=== PATIENT | male | born 1960 | race Caucasian/White ===

== ENCOUNTER 2018-03-18 18:19 | Emergency (ER) | payer MEDICARE, OTHER ==
[~2018-03-18] VITALS: Ht 172.7 cm; Wt 74.8 kg
[~2018-03-18 18:19] MED LIST: ALBU90OI INH; ASPI81CH PO; LEVSOD50 PO; Lisinopril2.5 MG; PRED20 PO; Zithromax250 MG PO
[2018-03-18] MEDS ORDERED: ATOR10 PO (19:35)
[2018-03-18 19:37] LABS: BASOPHILS ABSOLUTE AUTO 0.03 K/mm3 (0.00-0.23); BASOPHILS PERCENT AUTO 0 % (0-2); EOSINOPHILS ABSOLUTE AUTO 0.03 K/mm3 (0.00-0.68); EOSINOPHILS PERCENT AUTO 0 % (0-6); Hematocrit 38.1 % (37.0-53.0); Hemoglobin 12.2 g/dL (13.5-17.5); IMMATURE GRAN ABSOLUTE AUTO 0.04 K/mm3 (0.00-0.10); IMMATURE GRAN PERCENT AUTO 0 % (0-1); LYMPHOCYTES ABSOLUTE AUTO 3.31 K/mm3 (0.84-5.20); LYMPHOCYTES PERCENT AUTO 28 % (21-46); MONOCYTES ABSOLUTE AUTO 0.44 K/mm3 (0.16-1.47); MONOCYTES PERCENT AUTO 4 % (4-13); Mean Corpuscular HGB 24.8 pg (26.0-34.0); Mean Corpuscular Volume 78 fL (80-100); Mean Platelet Volume 9.7 fL (9.1-12.4); NEUTROPHILS ABSOLUTE AUTO 8.08 K/mm3 (1.96-9.15); NEUTROPHILS PERCENT AUTO 68 % (41-73); Platelet Count 332 K/mm3 (150-400); RDW Coefficient Variation 15.2 % (11.7-14.2); RDW Standard Deviation 42.8 fL (35.1-46.3); Red Blood Cell Count 4.91 M/mm3 (4.30-5.90); White Blood Cell Count 11.93 K/mm3 (4.00-11.30)
[2018-03-18 20:01] LABS: Alanine Aminotransfer (ALT/SGP 12 U/L (12-78); Albumin, Blood 3.2 g/dL (3.4-5.0); Albumin/Globulin Ratio 0.7 (0.8-1.8); Alk Phos 89 U/L (50-136); Anion Gap 12 mmol/L (6-16); Aspartate Aminotrans (AST/SGOT 13 U/L (12-37); Bilirubin, Total 0.6 mg/dL (0.1-1.0); Blood Urea Nitrogen 15 mg/dL (8-24); Bun/Creatinine Ratio 14.7 (12.0-20.0); CO2, Blood 19 mmol/L (21-32); Calcium, Blood 8.8 mg/dL (8.5-10.1); Chloride, Blood 100 mmol/L (98-108); Creatinine, Blood 1.02 mg/dL (0.60-1.20); Globulin, Blood 4.5 g/dL (2.2-4.0); Glomerular Filtration Rate >60 (60-); Glucose, Blood 84 mg/dL (70-99); Potassium, Blood 3.8 mmol/L (3.5-5.5); Sodium, Blood 131 mmol/L (136-145); Total Protein, Blood 7.7 g/dL (6.4-8.2); Troponin I <0.015 ng/mL (0.000-0.040)
[2018-03-18 20:45] LABS: Influenza A Negative (NEGATIVE); Influenza B Negative (NEGATIVE)
== END 2018-03-18 21:28 | disposition home or self-care (01) ==
LOC: ER 18:19
PROVIDERS: Emergency Medicine; Physician Assistant
DX: J44.9 Chronic obstructive pulmonary disease, unspecified (principal); J44.0 Chronic obstructive pulmonary disease with (acute) lower respiratory infection; J20.9 Acute bronchitis, unspecified; R50.9 Fever, unspecified; F17.210 Nicotine dependence, cigarettes, uncomplicated; Z79.899 Other long term (current) drug therapy
CPT/HCPCS: 36415; 71046; 80053; 83880; 84484; 85025; 87804; 93005; 93010; 96361; 96374; 96375; 99285-25; J1100; J2405; J7030

== ENCOUNTER 2018-04-23 20:50 | Observation (INO) | payer MEDICARE, OTHER ==
[~2018-04-23] VITALS: Ht 172.7 cm; Wt 77.1 kg
[~2018-04-23 20:50] MED LIST changes: +ATOR10 PO
[2018-04-23 21:24] LABS: BASOPHILS ABSOLUTE AUTO 0.04 K/mm3 (0.00-0.23); BASOPHILS PERCENT AUTO 0 % (0-2); EOSINOPHILS ABSOLUTE AUTO 0.01 K/mm3 (0.00-0.68); EOSINOPHILS PERCENT AUTO 0 % (0-6); Hematocrit 38.3 % (37.0-53.0); Hemoglobin 12.4 g/dL (13.5-17.5); IMMATURE GRAN ABSOLUTE AUTO 0.05 K/mm3 (0.00-0.10); IMMATURE GRAN PERCENT AUTO 0 % (0-1); LYMPHOCYTES ABSOLUTE AUTO 2.17 K/mm3 (0.84-5.20); LYMPHOCYTES PERCENT AUTO 18 % (21-46); MONOCYTES ABSOLUTE AUTO 0.54 K/mm3 (0.16-1.47); MONOCYTES PERCENT AUTO 4 % (4-13); Mean Corpuscular HGB 24.9 pg (26.0-34.0); Mean Corpuscular HGB Conc 32.4 g/dL (31.5-36.5); Mean Corpuscular Volume 77 fL (80-100); NEUTROPHILS ABSOLUTE AUTO 9.49 K/mm3 (1.96-9.15); NEUTROPHILS PERCENT AUTO 77 % (41-73); Platelet Count 247 K/mm3 (150-400); RDW Coefficient Variation 15.9 % (11.7-14.2); RDW Standard Deviation 44.5 fL (35.1-46.3); Red Blood Cell Count 4.98 M/mm3 (4.30-5.90)
[2018-04-23 21:40] LABS: Influenza A Negative (NEGATIVE); Influenza B Negative (NEGATIVE)
[2018-04-23 21:42] LABS: Alanine Aminotransfer (ALT/SGP 12 U/L (12-78); Albumin, Blood 3.3 g/dL (3.4-5.0); Albumin/Globulin Ratio 0.8 (0.8-1.8); Alk Phos 100 U/L (50-136); Anion Gap 13 mmol/L (6-16); Aspartate Aminotrans (AST/SGOT 18 U/L (12-37); Bilirubin, Total 0.9 mg/dL (0.1-1.0); Blood Urea Nitrogen 33 mg/dL (8-24); CO2, Blood 20 mmol/L (21-32); Calcium, Blood 9.1 mg/dL (8.5-10.1); Chloride, Blood 103 mmol/L (98-108); Creatinine, Blood 1.57 mg/dL (0.60-1.20); Globulin, Blood 4.3 g/dL (2.2-4.0); Glomerular Filtration Rate 48 (60-); Glucose, Blood 101 mg/dL (70-99); Potassium, Blood 3.9 mmol/L (3.5-5.5); Sodium, Blood 136 mmol/L (136-145); Total Protein, Blood 7.6 g/dL (6.4-8.2); Troponin I <0.015 ng/mL (0.000-0.040)
[2018-04-24 01:06] LABS: Source, Urine Clean Catch
[2018-04-24 01:09] LABS: Bilirubin, Urine Neg (Neg); Blood, Urine Neg (Neg); Glucose Qualitative, Urine Neg (Neg); Ketones, Urine 1+ (Neg); Leukocyte Esterase, Urine Neg (Neg); Nitrite, Urine Neg (Neg); Protein, Urine 1+ (Neg); Urobilinogen, Urine NORM (Normal)
[2018-04-24 01:12] LABS: Appearance, Urine Clear (Clear); Color, Urine Yellow (P-Yellow)
[2018-04-24 01:24] LABS: U Amphetamine Screen DETECTED; U Barbituate Screen Not Detected; U Benzodiazapine Screen Not Detected; U Buprenorphine Screen Not Detected; U Cannabinoids Screen Not Detected; U Cocaine Screen Not Detected; U Methadone Screen Not Detected; U Methamphetamine Screen DETECTED; U Opiates Screen Not Detected; U Oxycodone Screen Not Detected; U Phencyclidine Screen Not Detected; U Propoxyphene Screen Not Detected
[2018-04-24 03:04] LABS: Adenovirus Not Detected (NOT DETECT); Bordetella pertussis Not Detected (NOT DETECT); Chlamydophila pneumoniae Not Detected (NOT DETECT); Coronavirus 229E Not Detected (NOT DETECT); Coronavirus HKU1 Not Detected (NOT DETECT); Coronavirus NL63 Not Detected (NOT DETECT); Coronavirus OC43 Not Detected (NOT DETECT); Human Metapneumovirus Not Detected (NOT DETECT); Human Rhinovirus/Enterovirus Not Detected (NOT DETECT); Influenza A Not Detected (NOT DETECT); Influenza A/2009-H1 Not Detected (NOT DETECT); Influenza A/H1 Not Detected (NOT DETECT); Influenza A/H3 Not Detected (NOT DETECT); Influenza B Not Detected (NOT DETECT); Mycoplasma pneumoniae Not Detected (NOT DETECT); Parainfluenza Virus 1 Not Detected (NOT DETECT); Parainfluenza Virus 2 Not Detected (NOT DETECT); Parainfluenza Virus 3 Not Detected (NOT DETECT); Parainfluenza Virus 4 Not Detected (NOT DETECT); Respiratory Syncytial Virus Not Detected (NOT DETECT)
[2018-04-24 06:04] LABS: BASOPHILS ABSOLUTE AUTO 0.02 K/mm3 (0.00-0.23); BASOPHILS PERCENT AUTO 0 % (0-2); EOSINOPHILS PERCENT AUTO 0 % (0-6); Hematocrit 36.6 % (37.0-53.0); Hemoglobin 11.5 g/dL (13.5-17.5); IMMATURE GRAN ABSOLUTE AUTO 0.05 K/mm3 (0.00-0.10); IMMATURE GRAN PERCENT AUTO 1 % (0-1); LYMPHOCYTES ABSOLUTE AUTO 0.82 K/mm3 (0.84-5.20); LYMPHOCYTES PERCENT AUTO 9 % (21-46); MONOCYTES ABSOLUTE AUTO 0.33 K/mm3 (0.16-1.47); MONOCYTES PERCENT AUTO 4 % (4-13); Mean Corpuscular HGB 25.3 pg (26.0-34.0); Mean Corpuscular HGB Conc 31.4 g/dL (31.5-36.5); Mean Platelet Volume 10.3 fL (9.1-12.4); NEUTROPHILS ABSOLUTE AUTO 8.33 K/mm3 (1.96-9.15); NEUTROPHILS PERCENT AUTO 87 % (41-73); Platelet Count 197 K/mm3 (150-400); RDW Standard Deviation 46.9 fL (35.1-46.3); Red Blood Cell Count 4.55 M/mm3 (4.30-5.90); White Blood Cell Count 9.55 K/mm3 (4.00-11.30)
[2018-04-24 06:15] LABS: Mean Corpuscular Volume 80 fL (80-100)
[2018-04-24 06:32] LABS: Bun/Creatinine Ratio 26.7 (12.0-20.0); Calcium, Blood 8.3 mg/dL (8.5-10.1); Creatinine, Blood 1.35 mg/dL (0.60-1.20); Potassium, Blood 3.9 mmol/L (3.5-5.5)
[2018-04-24] MEDS ORDERED: ACET325 PO (08:56)
[2018-04-24] MEDS ORDERED: ASPI81CH PO (08:57)
[2018-04-24] MEDS ORDERED: BENZ100A PO (08:57)
[2018-04-24] MEDS ORDERED: Mucinex600 MG PO (08:58)
[2018-04-24] MEDS ORDERED: LEVO750 PO (08:58)
[2018-04-24] MEDS ORDERED: DULERA 200 MCG/13 GM INH (08:58)
== END 2018-04-24 10:15 | disposition home or self-care (01) ==
LOC: ER 20:50 → ERHOLD 20:51 → ER 23:37 → ERHOLD 04-24 10:15
PROVIDERS: Nurse Practitioner Acute Care; Physician Assistant; ADMIT Internal Medicine
DX: A41.9 Sepsis, unspecified organism (principal); N17.9 Acute kidney failure, unspecified; J44.1 Chronic obstructive pulmonary disease with (acute) exacerbation; F15.10 Other stimulant abuse, uncomplicated; I10 Essential (primary) hypertension; E78.5 Hyperlipidemia, unspecified; E03.9 Hypothyroidism, unspecified; F17.210 Nicotine dependence, cigarettes, uncomplicated; E86.0 Dehydration; Z23 Encounter for immunization; Z86.73 Personal history of transient ischemic attack (TIA), and cerebral infarction without residual deficits; Z79.899 Other long term (current) drug therapy; Z79.82 Long term (current) use of aspirin
CPT/HCPCS: 36415; 71046; 80048; 80053; 83605; 83735; 83880; 84145; 84484; 85025; 87040; 87486; 87581; 87633; 87798; 87804; 90686; 93005; 93010; 94640; 96361; 96365; 96375; 96376; 99285-25; G0008; G0378; J0696; J1885; J2405; J2930; J7030; J7120

== ENCOUNTER → 2018-04-26 | Outpatient (CLI) | payer MEDICARE ==
[~2018-04-26] MED LIST changes: +ACET325 PO; +BENZ100A PO; +DULERA 200 MCG/13 GM INH; +LEVO750 PO; +Mucinex600 MG PO
[2018-04-26 16:28] LABS: BASOPHILS ABSOLUTE AUTO 0.02 K/mm3 (0.00-0.23); BASOPHILS PERCENT AUTO 0 % (0-2); EOSINOPHILS ABSOLUTE AUTO 0.07 K/mm3 (0.00-0.68); EOSINOPHILS PERCENT AUTO 1 % (0-6); Hematocrit 37.6 % (37.0-53.0); Hemoglobin 12.2 g/dL (13.5-17.5); IMMATURE GRAN ABSOLUTE AUTO 0.01 K/mm3 (0.00-0.10); IMMATURE GRAN PERCENT AUTO 0 % (0-1); LYMPHOCYTES PERCENT AUTO 41 % (21-46); MONOCYTES ABSOLUTE AUTO 0.39 K/mm3 (0.16-1.47); MONOCYTES PERCENT AUTO 6 % (4-13); Mean Corpuscular HGB 24.9 pg (26.0-34.0); Mean Corpuscular HGB Conc 32.4 g/dL (31.5-36.5); Mean Platelet Volume 9.8 fL (9.1-12.4); NEUTROPHILS ABSOLUTE AUTO 3.48 K/mm3 (1.96-9.15); NEUTROPHILS PERCENT AUTO 52 % (41-73); Platelet Count 294 K/mm3 (150-400); RDW Coefficient Variation 15.9 % (11.7-14.2); RDW Standard Deviation 44.6 fL (35.1-46.3); Red Blood Cell Count 4.89 M/mm3 (4.30-5.90); White Blood Cell Count 6.67 K/mm3 (4.00-11.30)
[2018-04-26 16:29] LABS: Mean Corpuscular Volume 77 fL (80-100)
[2018-04-26 16:40] LABS: Albumin, Blood 2.9 g/dL (3.4-5.0); Anion Gap 11 mmol/L (6-16); Blood Urea Nitrogen 23 mg/dL (8-24); Bun/Creatinine Ratio 21.9 (12.0-20.0); CO2, Blood 25 mmol/L (21-32); Chloride, Blood 104 mmol/L (98-108); Creatinine, Blood 1.05 mg/dL (0.60-1.20); Glomerular Filtration Rate >60 (60-); Glucose, Blood 79 mg/dL (70-99); Phosphorus, Blood 3.6 mg/dL (2.5-4.9); Potassium, Blood 4.3 mmol/L (3.5-5.5); Sodium, Blood 140 mmol/L (136-145)
[2018-04-28 00:09] LABS: HIV SCREEN 4TH GENERATION WRFX Non Reactive (Non Reactive)
[2018-04-29 00:10] LABS: HBSAG SCREEN Negative (Negative); HEP A AB, IGM Negative (Negative); HEP B CORE AB, TOT Negative (Negative); HEP C VIRUS AB <0.1 (0.0-0.9)
== END | disposition home or self-care (01) ==
LOC: LAB SHORT 16:17 → LAB EV 16:17
PROVIDERS: Family Medicine
DX: I77.6 Arteritis, unspecified (principal); N17.9 Acute kidney failure, unspecified; N18.9 Chronic kidney disease, unspecified
CPT/HCPCS: 80069; 85025; 86704; 86708; 86803; 87340; 87389

== ENCOUNTER 2019-06-30 06:09 | Emergency (ER) | payer MEDICARE ==
[~2019-06-30] VITALS: Ht 172.7 cm; Wt 68.0 kg
[2019-06-30] MEDS ORDERED: LISI20 PO (06:25)
[2019-06-30] MEDS ORDERED: GABA100 PO (06:26)
[2019-06-30] MEDS ORDERED: Leflunomide10 MG PO (06:26)
[2019-06-30 06:33] LABS: BASOPHILS ABSOLUTE AUTO 0.04 K/mm3 (0.00-0.23); BASOPHILS PERCENT AUTO 1 % (0-2); EOSINOPHILS ABSOLUTE AUTO 0.06 K/mm3 (0.00-0.68); EOSINOPHILS PERCENT AUTO 1 % (0-6); Hemoglobin 12.7 g/dL (13.5-17.5); IMMATURE GRAN ABSOLUTE AUTO 0.02 K/mm3 (0.00-0.10); IMMATURE GRAN PERCENT AUTO 0 % (0-1); LYMPHOCYTES ABSOLUTE AUTO 2.39 K/mm3 (0.84-5.20); LYMPHOCYTES PERCENT AUTO 34 % (21-46); MONOCYTES ABSOLUTE AUTO 0.65 K/mm3 (0.16-1.47); MONOCYTES PERCENT AUTO 9 % (4-13); Mean Corpuscular HGB 24.5 pg (26.0-34.0); Mean Corpuscular Volume 79 fL (80-100); Mean Platelet Volume 9.6 fL (9.1-12.4); NEUTROPHILS ABSOLUTE AUTO 3.85 K/mm3 (1.96-9.15); NEUTROPHILS PERCENT AUTO 55 % (41-73); Platelet Count 244 K/mm3 (150-400); RDW Coefficient Variation 15.4 % (11.7-14.2); RDW Standard Deviation 44.3 fL (35.1-46.3); Red Blood Cell Count 5.18 M/mm3 (4.30-5.90); White Blood Cell Count 7.01 K/mm3 (4.00-11.30)
[2019-06-30 06:53] LABS: Alanine Aminotransfer (ALT/SGP 15 U/L (12-78); Albumin, Blood 2.8 g/dL (3.4-5.0); Albumin/Globulin Ratio 0.6 (0.8-1.8); Alk Phos 93 U/L (50-136); Anion Gap 8 mmol/L (6-16); Aspartate Aminotrans (AST/SGOT 19 U/L (12-37); Bilirubin, Total 0.4 mg/dL (0.1-1.0); Blood Urea Nitrogen 19 mg/dL (8-24); CO2, Blood 21 mmol/L (21-32); Calcium, Blood 8.6 mg/dL (8.5-10.1); Chloride, Blood 109 mmol/L (98-108); Creatinine, Blood 0.87 mg/dL (0.60-1.20); Globulin, Blood 4.5 g/dL (2.2-4.0); Glomerular Filtration Rate >60 (60-); Glucose, Blood 109 mg/dL (70-99); Potassium, Blood 4.6 mmol/L (3.5-5.5); Sodium, Blood 138 mmol/L (136-145); Total Protein, Blood 7.3 g/dL (6.4-8.2); Troponin I <0.015 ng/mL (0.000-0.040)
[2019-06-30] MEDS ORDERED: Prednisone20 MG PO (09:12)
== END 2019-06-30 09:37 | disposition home or self-care (01) ==
LOC: ER 06:09
PROVIDERS: Emergency Medicine
DX: J44.1 Chronic obstructive pulmonary disease with (acute) exacerbation (principal); I10 Essential (primary) hypertension; E03.9 Hypothyroidism, unspecified; M06.9 Rheumatoid arthritis, unspecified; Z79.82 Long term (current) use of aspirin; Z79.899 Other long term (current) drug therapy; Z86.73 Personal history of transient ischemic attack (TIA), and cerebral infarction without residual deficits; F17.200 Nicotine dependence, unspecified, uncomplicated
CPT/HCPCS: 70450; 71045; 80053; 84484; 85025; 93005; 93010; 96374; 96375; 99285-25; J0780; J1100; J1200; J1630; J1885; J2550

== ENCOUNTER → 2019-11-05 | Outpatient (CLI) | payer MEDICARE ==
[~2019-11-05] MED LIST changes: +Bactrim Ds Tab1 EACH PO; +CEPH500 PO; +GABA100 PO; +LEVSOD137 PO; -LEVSOD50 PO; +LISI20 PO; +Leflunomide10 MG PO; +Prednisone20 MG PO; +TRAM50 PO
== END ==
LOC: PLD 14:03 → LAB SHORT 14:03
DX: L92.8 Other granulomatous disorders of the skin and subcutaneous tissue (principal)
CPT/HCPCS: 88304

== ENCOUNTER 2020-01-18 05:57 | Day surgery (SDC) | payer MEDICARE ==
[~2020-01-18] VITALS: Ht 172.7 cm; Wt 67.8 kg
[~2020-01-18 05:57] MED LIST changes: +EUTHYROX137 MC1 PO; +GABA300 PO; +LEFLUNOMIDE20 MG PO
--- NOTE | 2020-01-18 07:00 | NUR ---
Ambulatory in Day Surgery. Surgical site prepped with 2% Chlorhexidine cloth wipe. Lorie Paws warming gown applied. History, Chart, Medications and Allergies reviewed before start of procedure.Lungs clear T/O to Auscultation. Patient confirms NPO status and agrees with scheduled surgery. Pre-Op teaching done. Pt verbalizes understanding. Patient States Post-Procedure ride home has been arranged. Patient reports completing Chlorhexadine shower X2 prior to admission to hospital.
--- NOTE | 2020-01-18 11:27 | NUR ---
Patient up to Ambulate independently. Gait steady. Discharge instructions reviewed with patient. Patient verbalizes understanding. Copy given to patient to take home.Lungs clear T/O to Auscultation. Patient States Post-Procedure ride home has been arranged. Discharged via wheelchair to private car for ride home.
== END 2020-01-18 11:28 | disposition home or self-care (01) ==
LOC: ORSCMMR 05:57 → ORD 07:30 → ORSCMMR 11:28
PROVIDERS: Surgery
PROC: 0YU74JZ Supplement Right Femoral Region with Synthetic Substitute, Percutaneous Endoscopic Approach (ICD-10-PCS; principal; 2020-01-18 07:30)
PROC: 8E0W4CZ Robotic Assisted Procedure of Trunk Region, Percutaneous Endoscopic Approach (ICD-10-PCS; principal; 2020-01-18 07:30)
DX: K41.90 Unilateral femoral hernia, without obstruction or gangrene, not specified as recurrent (principal); E03.9 Hypothyroidism, unspecified; I12.9 Hypertensive chronic kidney disease with stage 1 through stage 4 chronic kidney disease, or unspecified chronic kidney disease; N18.9 Chronic kidney disease, unspecified; Z86.73 Personal history of transient ischemic attack (TIA), and cerebral infarction without residual deficits; Z79.82 Long term (current) use of aspirin; Z79.899 Other long term (current) drug therapy; Z87.891 Personal history of nicotine dependence
CPT/HCPCS: 49659; S2900; A9270-GY; C1713; J0690; J1100; J2250; J2370; J2405; J2704; J3010; J7120

== ENCOUNTER 2020-05-24 18:08 | Emergency (ER) | payer MEDICARE ==
[~2020-05-24] VITALS: Ht 172.7 cm; Wt 74.8 kg
== END 2020-05-24 20:26 | disposition left against medical advice (07) ==
LOC: ER 18:08
DX: L02.612 Cutaneous abscess of left foot (principal); J44.9 Chronic obstructive pulmonary disease, unspecified; Z53.20 Procedure and treatment not carried out because of patient's decision for unspecified reasons; Z86.73 Personal history of transient ischemic attack (TIA), and cerebral infarction without residual deficits
CPT/HCPCS: 10060; 99283-25

== ENCOUNTER 2020-08-08 12:02 | Emergency (ER) | payer MEDICARE ==
[~2020-08-08] VITALS: Ht 172.7 cm; Wt 70.3 kg
[2020-08-08] MEDS ORDERED: SYNTHROID137 MCG PO (13:09)
[2020-08-08] MEDS ORDERED: LISI20 PO (13:10)
[2020-08-08] MEDS ORDERED: LEFLUNOMIDE10 M2 PO (13:10)
[2020-08-08 14:16] LABS: BASOPHILS ABSOLUTE AUTO 0.07 K/mm3 (0.00-0.23); BASOPHILS PERCENT AUTO 1 % (0-2); EOSINOPHILS ABSOLUTE AUTO 0.13 K/mm3 (0.00-0.68); EOSINOPHILS PERCENT AUTO 2 % (0-6); Hematocrit 44.5 % (37.0-53.0); Hemoglobin 14.2 g/dL (13.5-17.5); IMMATURE GRAN ABSOLUTE AUTO 0.03 K/mm3 (0.00-0.10); IMMATURE GRAN PERCENT AUTO 1 % (0-1); LYMPHOCYTES PERCENT AUTO 55 % (21-46); MONOCYTES ABSOLUTE AUTO 0.57 K/mm3 (0.16-1.47); MONOCYTES PERCENT AUTO 9 % (4-13); Mean Corpuscular HGB 25.4 pg (26.0-34.0); Mean Corpuscular HGB Conc 31.9 g/dL (31.5-36.5); Mean Corpuscular Volume 80 fL (80-100); NEUTROPHILS ABSOLUTE AUTO 2.11 K/mm3 (1.96-9.15); NEUTROPHILS PERCENT AUTO 33 % (41-73); Platelet Count 296 K/mm3 (150-400); RDW Coefficient Variation 14.3 % (11.7-14.2); Red Blood Cell Count 5.59 M/mm3 (4.30-5.90); White Blood Cell Count 6.41 K/mm3 (4.00-11.30)
[2020-08-08 14:20] LABS: Calcium, Ionized (POC) 1.03 mmol/L (1.10-1.46); Chloride (POC) 104 mmol/L (98-108); Creatinine (POC) 2.2 mg/dL (0.8-1.3); Glucose (ISTAT POC) 77 mg/dL (70-99); Sodium (POC) 137 mmol/L (135-148); Total CO2 (POC) 21 mmol/L (21-32)
[2020-08-08 14:27] LABS: Alanine Aminotransfer (ALT/SGP 25 U/L (12-78); Albumin, Blood 3.3 g/dL (3.4-5.0); Albumin/Globulin Ratio 0.8 (0.8-1.8); Alk Phos 125 U/L (50-136); Anion Gap 8 mmol/L (6-16); Aspartate Aminotrans (AST/SGOT 24 U/L (12-37); Bilirubin, Total 0.3 mg/dL (0.1-1.0); Blood Urea Nitrogen 33 mg/dL (8-24); Bun/Creatinine Ratio 15.9 (12.0-20.0); CO2, Blood 23 mmol/L (21-32); Calcium, Blood 8.9 mg/dL (8.5-10.1); Chloride, Blood 104 mmol/L (98-108); Creatinine, Blood 2.08 mg/dL (0.60-1.20); Ethanol (Alcohol), Blood, Med <3 mg/dL; Globulin, Blood 4.3 g/dL (2.2-4.0); Glomerular Filtration Rate 35 (60-); Glucose, Blood 85 mg/dL (70-99); Sodium, Blood 135 mmol/L (136-145); Total Protein, Blood 7.6 g/dL (6.4-8.2)
[2020-08-08] MEDS ORDERED: OXYC5 PO (15:31)
== END 2020-08-08 15:45 | disposition home or self-care (01) ==
LOC: ER 12:02
PROVIDERS: Emergency Medicine
DX: S06.0X9A Concussion with loss of consciousness of unspecified duration, initial encounter (principal); S82.832A Other fracture of upper and lower end of left fibula, initial encounter for closed fracture; S82.392A Other fracture of lower end of left tibia, initial encounter for closed fracture; S61.512A Laceration without foreign body of left wrist, initial encounter; S40.012A Contusion of left shoulder, initial encounter; I10 Essential (primary) hypertension; J44.9 Chronic obstructive pulmonary disease, unspecified; E03.9 Hypothyroidism, unspecified; Z87.891 Personal history of nicotine dependence; Z79.899 Other long term (current) drug therapy; W17.89XA Other fall from one level to another, initial encounter
CPT/HCPCS: 29505; 70450; 71260; 72125; 73590; 74177; 80047; 80053; 85014; 85025; 96374-59; 96375-59; 99285-25; G0480; J1170; J2405; Q9967

== ENCOUNTER 2020-08-08 18:23 | Emergency (ER) | payer OTHER, MEDICARE ==
[~2020-08-08] VITALS: Ht 172.7 cm; Wt 72.6 kg
[~2020-08-08 18:23] MED LIST changes: +LEFLUNOMIDE10 M2 PO; +OXYC5 PO; +SYNTHROID137 MCG PO
[2020-08-08 19:18] LABS: BASOPHILS ABSOLUTE AUTO 0.04 K/mm3 (0.00-0.23); BASOPHILS PERCENT AUTO 1 % (0-2); EOSINOPHILS ABSOLUTE AUTO 0.05 K/mm3 (0.00-0.68); EOSINOPHILS PERCENT AUTO 1 % (0-6); Hematocrit 43.3 % (37.0-53.0); Hemoglobin 13.9 g/dL (13.5-17.5); IMMATURE GRAN ABSOLUTE AUTO 0.01 K/mm3 (0.00-0.10); IMMATURE GRAN PERCENT AUTO 0 % (0-1); LYMPHOCYTES ABSOLUTE AUTO 2.42 K/mm3 (0.84-5.20); LYMPHOCYTES PERCENT AUTO 48 % (21-46); MONOCYTES ABSOLUTE AUTO 0.65 K/mm3 (0.16-1.47); MONOCYTES PERCENT AUTO 13 % (4-13); Mean Corpuscular HGB 25.9 pg (26.0-34.0); Mean Corpuscular HGB Conc 32.1 g/dL (31.5-36.5); Mean Corpuscular Volume 81 fL (80-100); Mean Platelet Volume 9.8 fL (9.1-12.4); NEUTROPHILS ABSOLUTE AUTO 1.85 K/mm3 (1.96-9.15); NEUTROPHILS PERCENT AUTO 37 % (41-73); Platelet Count 265 K/mm3 (150-400); RDW Coefficient Variation 14.4 % (11.7-14.2); RDW Standard Deviation 41.7 fL (35.1-46.3); Red Blood Cell Count 5.37 M/mm3 (4.30-5.90); White Blood Cell Count 5.02 K/mm3 (4.00-11.30)
[2020-08-08 19:48] LABS: Alanine Aminotransfer (ALT/SGP 22 U/L (12-78); Albumin, Blood 3.4 g/dL (3.4-5.0); Albumin/Globulin Ratio 0.8 (0.8-1.8); Alk Phos 123 U/L (50-136); Anion Gap 5 mmol/L (6-16); Aspartate Aminotrans (AST/SGOT 28 U/L (12-37); Bilirubin, Total 0.4 mg/dL (0.1-1.0); Blood Urea Nitrogen 31 mg/dL (8-24); Bun/Creatinine Ratio 17.3 (12.0-20.0); CO2, Blood 26 mmol/L (21-32); Calcium, Blood 9.1 mg/dL (8.5-10.1); Chloride, Blood 104 mmol/L (98-108); Creatinine, Blood 1.79 mg/dL (0.60-1.20); Globulin, Blood 4.4 g/dL (2.2-4.0); Glomerular Filtration Rate 41 (60-); Glucose, Blood 85 mg/dL (70-99); Potassium, Blood 4.5 mmol/L (3.5-5.5); Sodium, Blood 135 mmol/L (136-145); Total Protein, Blood 7.8 g/dL (6.4-8.2); Troponin I <0.015 ng/mL (0.000-0.040)
== END 2020-08-08 23:47 | disposition home or self-care (01) ==
LOC: ER 18:23
PROVIDERS: Physician Assistant
DX: S82.402A Unspecified fracture of shaft of left fibula, initial encounter for closed fracture (principal); S83.91XA Sprain of unspecified site of right knee, initial encounter; J44.9 Chronic obstructive pulmonary disease, unspecified; Z79.899 Other long term (current) drug therapy; W18.30XA Fall on same level, unspecified, initial encounter; Y92.410 Unspecified street and highway as the place of occurrence of the external cause
CPT/HCPCS: 36415; 71045; 73562-RT; 80053; 84484; 85025; 93005; 93010; 99283-25; A9270

== ENCOUNTER 2021-01-04 14:01 | Inpatient (IN) | payer MEDICARE ==
[~2021-01-04] VITALS: Ht 172.7 cm; Wt 67.4 kg
[~2021-01-04 14:01] MED LIST changes: +LEFL20 PO; -LEFLUNOMIDE10 M2 PO; +ONDA4 PO
[2021-01-04 14:51] LABS: BASOPHILS ABSOLUTE AUTO 0.04 K/mm3 (0.00-0.23); BASOPHILS PERCENT AUTO 1 % (0-2); EOSINOPHILS ABSOLUTE AUTO 0.18 K/mm3 (0.00-0.68); EOSINOPHILS PERCENT AUTO 2 % (0-6); Hematocrit 35.5 % (37.0-53.0); Hemoglobin 11.1 g/dL (13.5-17.5); IMMATURE GRAN ABSOLUTE AUTO 0.03 K/mm3 (0.00-0.10); IMMATURE GRAN PERCENT AUTO 0 % (0-1); LYMPHOCYTES ABSOLUTE AUTO 1.91 K/mm3 (0.84-5.20); LYMPHOCYTES PERCENT AUTO 24 % (21-46); MONOCYTES ABSOLUTE AUTO 0.41 K/mm3 (0.16-1.47); MONOCYTES PERCENT AUTO 5 % (4-13); Mean Corpuscular HGB 25.3 pg (26.0-34.0); Mean Corpuscular HGB Conc 31.3 g/dL (31.5-36.5); Mean Corpuscular Volume 81 fL (80-100); Mean Platelet Volume 9.8 fL (9.1-12.4); NEUTROPHILS PERCENT AUTO 68 % (41-73); Platelet Count 265 K/mm3 (150-400); RDW Coefficient Variation 15.3 % (11.7-14.2); RDW Standard Deviation 44.7 fL (35.1-46.3); Red Blood Cell Count 4.38 M/mm3 (4.30-5.90); White Blood Cell Count 8.07 K/mm3 (4.00-11.30)
[2021-01-04 15:05] LABS: Anion Gap 5 mmol/L (6-16); Blood Urea Nitrogen 30 mg/dL (8-24); Bun/Creatinine Ratio 27.3 (12.0-20.0); CO2, Blood 25 mmol/L (21-32); Calcium, Blood 8.6 mg/dL (8.5-10.1); Chloride, Blood 107 mmol/L (98-108); Glomerular Filtration Rate >60 (60-); Glucose, Blood 102 mg/dL (70-99); Potassium, Blood 4.1 mmol/L (3.5-5.5); Sodium, Blood 137 mmol/L (136-145); Troponin I <0.015 ng/mL (0.000-0.040)
[2021-01-04 21:09] LABS: SARS-Cov-2 (COVID-19) PCR, MMC NEGATIVE (NEGATIVE)
--- NOTE | 2021-01-04 22:00 | NUR ---
RECEIVED HAND OFF FROM Noreen GODINEZ RN USING SBAR. TRANSPORTED TO ROOM VIA STRETCHER. TRANSFERED TO BED WITH FULL STAFF ASSIST. AAO X3 WITH INTERMITTENT LOSS OF FOCUS AND MEMORY ISSUES, REPORTS FROM PREVIOUS STROKE. ORIENTED TO ROOM, POC, AND CALL SYSTEM, VOICES UNDERSTANDING, BUT WILL REMIND PT NEEDED. RESPIRATIONS EVEN AND UNLABORED. INTERMITTENTLY PT WILL STOP, TAKE A DEEP BREATH, AND BEGIN PURSE LIP BREATHING. RIGHT HIP PAINFUL AND EXTERNALLY ROTATED. POST TIBIAL AND PEDAL PULSES PALPABLE BILATERALLY, FEET ARE WARM. REPOSITIONED WITH HOB AND KNEES ELEVATED FOR COMFORT. RIGHT HAND 22G SL PIV IS PATENT, FLUSHING WITH EASE. SCD'S TO BLE. NPO SINCE ADMISSION. DENIES FURTHER NEEDS AT THIS TIME. SAFETY MEASURES IN PLACE. ADMISSION ASSESSMENT IN PROGRESS. WILL CONTINE TO MONITOR AND ADDRESS NEEDS THEY ARISE.
--- NOTE | 2021-01-05 04:24 | NUR ---
LYING IN SEMI FOWLERS WITH EYES CLOSED. ABLE TO REST WELL WITH PAIN MANAGED/ HAS BEEN PLEASANT AND COOPERATIVE WITH CARE. INTERMITTENT CONFUSION NOTED, HE IS ABLE TO BE REORIENTED. PAIN MANAGED WITH DILAUDID PER EMAR. HAS BEEN NPO SINCE ADMISSION. ORAL CARE PERFORMED PRN, REPORTS RELIEF. DENIES FURTHER NEEDS OR WANTS AT THIS TIME. SAFETY MEASURES IN PLACE. WILL GIVE HAND OFF TO ONCOMING SHIFT USIING SBAR DURING BEDSIDE REPORT.
--- NOTE | 2021-01-05 15:01 | NUR ---
History, Chart, Medications and Allergies reviewed before start of procedure.Pre-Op teaching done. Pt verbalizes understanding.
--- NOTE | 2021-01-05 17:26 | NUR ---
SHIFT SUMMARY PATIENT ORIENTED WHEN AWAKE THROUGHOUT SHIFT. WENT FOR SURGICAL REPAIR OF RIGHT HIP FX AT 1400. PAIN UNCONTROLLED WITH IV PAIN MEDS. IV FLUID RUNNING. NPO. SPOKE WITH PATIENT'S ON THE PHONE AND PROVIDED UPDATE OF PATIENT STATUS. PATIENT REPOSITIONS SELF WITH HELP. USES URINAL. RETURNED TO ROOM AT 1745 IN STABLE CONDITION. OBTAINED REPORT FROM LEAD LEVEL DESIGNER. WILL REPORT TO HAULPAK DRIVER RN.
[2021-01-05 19:01] LABS: Percent Saturation 7.2 % (20.0-50.0)
[2021-01-06 04:46] LABS: BASOPHILS ABSOLUTE AUTO 0.04 K/mm3 (0.00-0.23); BASOPHILS PERCENT AUTO 1 % (0-2); EOSINOPHILS PERCENT AUTO 1 % (0-6); Hemoglobin 9.7 g/dL (13.5-17.5); IMMATURE GRAN ABSOLUTE AUTO 0.03 K/mm3 (0.00-0.10); IMMATURE GRAN PERCENT AUTO 0 % (0-1); LYMPHOCYTES PERCENT AUTO 18 % (21-46); MONOCYTES ABSOLUTE AUTO 0.45 K/mm3 (0.16-1.47); MONOCYTES PERCENT AUTO 6 % (4-13); Mean Corpuscular HGB 25.3 pg (26.0-34.0); Mean Corpuscular HGB Conc 31.3 g/dL (31.5-36.5); Mean Corpuscular Volume 81 fL (80-100); Mean Platelet Volume 10.2 fL (9.1-12.4); NEUTROPHILS ABSOLUTE AUTO 5.15 K/mm3 (1.96-9.15); NEUTROPHILS PERCENT AUTO 73 % (41-73); Platelet Count 195 K/mm3 (150-400); RDW Coefficient Variation 15.4 % (11.7-14.2); RDW Standard Deviation 44.9 fL (35.1-46.3); Red Blood Cell Count 3.84 M/mm3 (4.30-5.90); White Blood Cell Count 7.07 K/mm3 (4.00-11.30)
[2021-01-06 05:13] LABS: Albumin, Blood 1.8 g/dL (3.4-5.0); Anion Gap 5 mmol/L (6-16); Blood Urea Nitrogen 23 mg/dL (8-24); Bun/Creatinine Ratio 25.4 (12.0-20.0); CO2, Blood 26 mmol/L (21-32); Calcium, Blood 8.2 mg/dL (8.5-10.1); Chloride, Blood 108 mmol/L (98-108); Glomerular Filtration Rate >60 (60-); Glucose, Blood 89 mg/dL (70-99); Phosphorus, Blood 3.2 mg/dL (2.5-4.9); Potassium, Blood 4.6 mmol/L (3.5-5.5); Sodium, Blood 139 mmol/L (136-145)
--- NOTE | 2021-01-06 06:20 | NUR ---
PT IS A/OX2-3 W/PERIODS OF FORGETFULLNESS AND CONFUSION. HE IS ABLE TO MAKE HIS NEEDS KNOWN. HE HAD SUSTAINED RT HIP FX FROM [facility] AT HOME. HE IS S/P RT TOTAL HIP ARTHROPLASTY DONE 01/05/21. ANTERIOR RT HIP INCISION COVERED W/ONE AQUACEL, DRSG IS CDI. GOOD CSM'S. DENIED ANY NUMBNESS/TINGLING TO RLE. VOIDS PER URINAL. NO GI UPSET. TOLERATING REG DIET WELL. OXYGEN AT 2L PER NC. WHEEZING/COARSE BS NOTED. I/S AT BEDSIDE, PT ENCOURAGED TO USE.
--- NOTE | 2021-01-06 17:19 | NUR ---
Pt. up with PT to recliner today and ate lunch sitting up. Tolerate well. Taking po oxycodone 10 mg for pain and verbilize relief. Dozing at this time watching t.v. IVF infusing. Call light in reach. Alert and oriented x 4, at times forgetful, pleasant affect.
--- NOTE | 2021-01-07 05:32 | NUR ---
PT IS A/OX2 WITH PERIODS OF CONFUSION AND FORGETFULLNESS. IS ABLE TO MAKE HIS NEEDS KNOWN. IN GOOD SPIRITS. NO EVENTS OVER NIGHT. HE IS S/P RTHA ON 01/05/21 FOR FX. INCISION TO ANTERIOR HIP COVERED WITH AQUACEL, WHICH IS CDI. GOOD CSM'S TO RLE. DENIES ANY NUMBNESS/TINGLING. TOLERATING REG DIET WELL. NO N/V. BT'S POS. OXYGEN AT 2L PER NC. DOES REMOVE OXYGEN FROM TIME TO TIME. WHEN HE DOES, SATS IN MID 80'S. WHEEZING AND COARSE BREATHSOUNDS PRESENT.
--- NOTE | 2021-01-07 15:01 | NUR ---
SHIFT SUMMARY: Pt. c/o R hip pain approx q 4 hour requesting oxycodone for 7-8 out of 10 pain. Verbalizes relief with oxy 10. Up to chair today, mod assist of one, moves very slow and stiff, gait belt, fww, and assist of one. Back to bed at this time. RT in for neb tx, lungs are dim and coarse t.o. Today Sats are 95% however on RA. No longer needing oxygen at this time. Appetite good. Urine output good. Patient accidently removed IV this a.m., has no iv acsess at this time.
[2021-01-07 17:11] LABS: Hemoglobin 10.4 g/dL (13.5-17.5)
--- NOTE | 2021-01-07 17:58 | NUR ---
Additional Shift summary: Dr. Pham in to see pt. this evening. Wifes phone number given (per message to PACU as per MD request) for Doctor to call per request. Patient taking Oxycodone and alternating with tylenol today, verbalize "better" pain control.
[2021-01-08] MEDS ORDERED: DOCU100 PO (09:04)
[2021-01-08] MEDS ORDERED: Aspir 8181 MG PO (09:04)
[2021-01-08] MEDS ORDERED: DULCOLAX400 MG/5 M PO (09:06)
[2021-01-08] MEDS ORDERED: IPRAT-ALBUT 0.5-3 ML INH (09:06)
[2021-01-08] MEDS ORDERED: SENN187 PO (09:07)
--- NOTE | 2021-01-08 09:57 | NUR ---
pt declines MOM or dulcolax, states he is passing flatus
--- NOTE | 2021-01-08 10:10 | NUR ---
pt states he will not wear biox
[2021-01-08] MEDS ORDERED: Percocet 5-3251 EACH PO (12:24)
--- NOTE | 2021-01-08 16:49 | NUR ---
1329 DISCHARGED TO HOME WITH . PT HAS GAIT BELT AND WALKER AT TIME OF DISCHARGE. PT REPORTS PAIN IS CONTROLLED WITH PO MEDS, PT TOLEATING PO FOOD AND FLUIDS WITHOUT NAUSEA. VOIDING CLEAR YELLOW URINE. PT IS 1 PEWRSON ASSIST WITH AMBULATION WITH WALKER AND GAIT BELT, PT REQUIRES VERBAL CUES ON CORRECT HAND PLACEMENT AND USE OF WALKER.. PTS VERBALIZES UNDERSTANDING OF HOME MEDS, DRESSING CHANGES, ACTIVITY, PAIN CONTROL AND HOME HEALTH. PT IS UNINTERESTE DIN DISCHARGE INSTRUCTIUONS, BECAME FRUSTRATEDS WHEILE GETTING DRESSED AND THREW CALL LIGHT AND STATES "I JUST NEED TO GET THE HELL OUT OF HERE'
== END 2021-01-08 13:29 | disposition home health service (06) | DRG 522 ==
LOC: ER 14:01 → SURS 18:51
PROVIDERS: Internal Medicine; Orthopaedic Surgery; Student in an Organized Health Care Education/Training Program; ADMIT Hospitalist
PROC: 0SR902Z Replacement of Right Hip Joint with Metal on Polyethylene Synthetic Substitute, Open Approach (ICD-10-PCS; principal; 2021-01-05 17:00)
DX: S72.001A Fracture of unspecified part of neck of right femur, initial encounter for closed fracture (principal); J44.1 Chronic obstructive pulmonary disease with (acute) exacerbation; J90 Pleural effusion, not elsewhere classified; Z20.822 Contact with and (suspected) exposure to COVID-19; M06.9 Rheumatoid arthritis, unspecified; D64.9 Anemia, unspecified; Z86.16 Personal history of COVID-19; E03.9 Hypothyroidism, unspecified; I10 Essential (primary) hypertension; F17.210 Nicotine dependence, cigarettes, uncomplicated; Z86.73 Personal history of transient ischemic attack (TIA), and cerebral infarction without residual deficits; Z79.899 Other long term (current) drug therapy; Z98.890 Other specified postprocedural states; W19.XXXA Unspecified fall, initial encounter
CPT/HCPCS: 36415; 71046; 72170; 73502; 73560-RT; 80048; 80069; 82607; 82728; 82746; 83540; 83550; 83735; 84484; 85014; 85018; 85025; 93005; 93010; 94640; 94762; 96375; 97110; 97116; 97162; 97530; 99285-25; A9270; C1776; J0171; J0690; J0735; J1100; J1170; J1885; J2270; J2370; J2405; J2704; J2795; J3010; J7120; U0004

== ENCOUNTER → 2021-02-16 | Outpatient (CLI) | payer MEDICARE ==
[~2021-02-16] MED LIST changes: +Aspir 8181 MG PO; +DOCU100 PO; +DULCOLAX400 MG/5 M PO; +IPRAT-ALBUT 0.5-3 ML INH; +Percocet 5-3251 EACH PO; +SENN187 PO
== END | disposition home or self-care (01) ==
LOC: LAB 18:04 → LAB SHORT 18:04
DX: E03.9 Hypothyroidism, unspecified (principal)
CPT/HCPCS: 84443

== ENCOUNTER → 2021-07-27 | Outpatient (CLI) | payer MEDICARE | END | disposition home or self-care (01) | LOC: LAB SHORT 11:30 | DX: L08.9 Local infection of the skin and subcutaneous tissue, unspecified (principal); L89.93 Pressure ulcer of unspecified site, stage 3 | CPT/HCPCS: 87070; 87077; 87147; 87186; 87205 ==

== ENCOUNTER 2021-08-05 02:41 | Day surgery (SDC) | payer MEDICARE | END 2021-08-05 23:41 | disposition home or self-care (01) | LOC: WOUND 02:41 | DX: L02.612 Cutaneous abscess of left foot (principal); L97.522 Non-pressure chronic ulcer of other part of left foot with fat layer exposed; L08.9 Local infection of the skin and subcutaneous tissue, unspecified; F17.210 Nicotine dependence, cigarettes, uncomplicated; I10 Essential (primary) hypertension | CPT/HCPCS: 99406; G0463 ==

== ENCOUNTER 2021-08-18 02:04 | Day surgery (SDC) | payer MEDICARE | END 2021-08-18 22:55 | disposition home or self-care (01) | LOC: WOUND 02:04 | DX: L02.619 Cutaneous abscess of unspecified foot (principal); L97.522 Non-pressure chronic ulcer of other part of left foot with fat layer exposed; L08.9 Local infection of the skin and subcutaneous tissue, unspecified; G90.09 Other idiopathic peripheral autonomic neuropathy; Z72.0 Tobacco use | CPT/HCPCS: 99406; A9270; G0463 ==

== ENCOUNTER 2021-08-25 03:45 | Day surgery (SDC) | payer MEDICARE | END 2021-08-25 22:37 | disposition home or self-care (01) | LOC: WOUND 03:45 | DX: L02.612 Cutaneous abscess of left foot (principal); L97.522 Non-pressure chronic ulcer of other part of left foot with fat layer exposed; L08.9 Local infection of the skin and subcutaneous tissue, unspecified; G90.09 Other idiopathic peripheral autonomic neuropathy; Z72.0 Tobacco use | CPT/HCPCS: 99406; A9270; G0463 ==

== ENCOUNTER 2021-09-08 01:29 | Day surgery (SDC) | payer MEDICARE | END 2021-09-08 23:00 | disposition home or self-care (01) | LOC: WOUND 01:29 | DX: L97.422 Non-pressure chronic ulcer of left heel and midfoot with fat layer exposed (principal); L02.612 Cutaneous abscess of left foot; G90.09 Other idiopathic peripheral autonomic neuropathy; Z72.0 Tobacco use | CPT/HCPCS: 99406; A9270; G0463 ==

== ENCOUNTER 2022-07-27 19:26 | Emergency (ER) | payer OTHER, MEDICARE ==
[~2022-07-27] VITALS: Ht 170.2 cm; Wt 63.5 kg
[2022-07-27 20:30] VITALS: BP 135/95
== END 2022-07-27 21:56 | disposition home or self-care (01) ==
LOC: ER 19:26
DX: S20.212A Contusion of left front wall of thorax, initial encounter (principal); W01.0XXA Fall on same level from slipping, tripping and stumbling without subsequent striking against object, initial encounter; J44.9 Chronic obstructive pulmonary disease, unspecified; F17.210 Nicotine dependence, cigarettes, uncomplicated; Z79.899 Other long term (current) drug therapy; Z79.82 Long term (current) use of aspirin
CPT/HCPCS: 71101; A9270

== ENCOUNTER → 2022-10-05 | Outpatient (CLI) | payer MEDICARE ==
[2022-10-05 19:39] LABS: Hematocrit 41.9 % (37.0-53.0); Hemoglobin 12.5 g/dL (13.5-17.5); Mean Corpuscular HGB 22.1 pg (26.0-34.0); Mean Corpuscular HGB Conc 29.8 g/dL (31.5-36.5); Mean Corpuscular Volume 74 fL (80-100); Mean Platelet Volume 9.8 fL (9.1-12.4); Platelet Count 313 K/mm3 (150-400); RDW Coefficient Variation 16.4 % (11.7-14.2); RDW Standard Deviation 43.5 fL (35.1-46.3); Red Blood Cell Count 5.66 M/mm3 (4.30-5.90); White Blood Cell Count 6.63 K/mm3 (4.00-11.30)
[2022-10-05 20:37] LABS: Anion Gap 4 mmol/L (6-16); Blood Urea Nitrogen 14 mg/dL (8-24); Bun/Creatinine Ratio 13.7 (12.0-20.0); CO2, Blood 27 mmol/L (21-32); Calcium, Blood 8.9 mg/dL (8.5-10.1); Chloride, Blood 105 mmol/L (98-108); Creatinine, Blood 1.02 mg/dL (0.60-1.20); Glomerular Filtration Rate 83 (60-); Glucose, Blood 137 mg/dL (70-99); Potassium, Blood 4.6 mmol/L (3.5-5.5); Sodium, Blood 136 mmol/L (136-145)
[2022-10-07 10:13] LABS: CHOL/HDL RATIO 3.6; Cholesterol 160 mg/dL (50-200); HDL Cholesterol 45 mg/dL (>39); LDL/HDL RATIO 1.7; Low Density Lipoprotein Chol 75 mg/dL (0-110); Triglycerides 200 mg/dL (30-160); Very Low Density Lipoprot Chol 40 mg/dL (6-32)
== END | disposition home or self-care (01) ==
LOC: LAB SHORT 15:55 → LAB 15:55
PROVIDERS: Family Medicine
DX: R63.4 Abnormal weight loss (principal); I10 Essential (primary) hypertension; F03.90 Unspecified dementia, unspecified severity, without behavioral disturbance, psychotic disturbance, mood disturbance, and anxiety
CPT/HCPCS: 80048; 80061; 82607; 82746; 84443; 85027

== ENCOUNTER 2023-03-23 12:16 | Emergency (ER) | payer MEDICARE ==
[~2023-03-23] VITALS: Ht 172.7 cm; Wt 59.8 kg
[2023-03-23 13:49] LABS: BASOPHILS ABSOLUTE AUTO 0.12 K/mm3 (0.00-0.23); BASOPHILS PERCENT AUTO 1 % (0-2); EOSINOPHILS ABSOLUTE AUTO 0.08 K/mm3 (0.00-0.68); EOSINOPHILS PERCENT AUTO 1 % (0-6); Hemoglobin 16.4 g/dL (13.5-17.5); IMMATURE GRAN ABSOLUTE AUTO 0.02 K/mm3 (0.00-0.10); IMMATURE GRAN PERCENT AUTO 0 % (0-1); LYMPHOCYTES ABSOLUTE AUTO 4.68 K/mm3 (0.84-5.20); LYMPHOCYTES PERCENT AUTO 47 % (21-46); MONOCYTES ABSOLUTE AUTO 0.78 K/mm3 (0.16-1.47); MONOCYTES PERCENT AUTO 8 % (4-13); Mean Corpuscular HGB 24.7 pg (26.0-34.0); Mean Corpuscular HGB Conc 31.5 g/dL (31.5-36.5); Mean Corpuscular Volume 78 fL (80-100); Mean Platelet Volume 9.4 fL (9.1-12.4); NEUTROPHILS ABSOLUTE AUTO 4.27 K/mm3 (1.96-9.15); NEUTROPHILS PERCENT AUTO 43 % (41-73); Platelet Count 406 K/mm3 (150-400); RDW Coefficient Variation 14.6 % (11.7-14.2); RDW Standard Deviation 40.4 fL (35.1-46.3); Red Blood Cell Count 6.64 M/mm3 (4.30-5.90); White Blood Cell Count 9.95 K/mm3 (4.00-11.30)
[2023-03-23 14:15] LABS: Albumin, Blood 3.2 g/dL (3.4-5.0); Albumin/Globulin Ratio 0.6 (0.8-1.8); Bilirubin, Total 0.3 mg/dL (0.1-1.0); Bun/Creatinine Ratio 19.8 (12.0-20.0); Calcium, Blood 10.1 mg/dL (8.5-10.1); Creatinine, Blood 1.62 mg/dL (0.60-1.20); Globulin, Blood 5.3 g/dL (2.2-4.0); Potassium, Blood 5.1 mmol/L (3.5-5.5); Total Protein, Blood 8.5 g/dL (6.4-8.2)
[2023-03-23 17:46] VITALS: BP 140/115
[2023-03-23 19:05] LABS: Source, Urine Clean Catch
[2023-03-23 19:15] LABS: Appearance, Urine Hazy (Clear); Bilirubin, Urine Neg (Neg); Blood, Urine 2+ (Neg); Color, Urine Yellow (P-Yellow); Glucose Qualitative, Urine Neg (Neg); Ketones, Urine Neg (Neg); Leukocyte Esterase, Urine Neg (Neg); Nitrite, Urine Neg (Neg); Protein, Urine 3+ (Neg); Urobilinogen, Urine NORM (Normal)
[2023-03-23 19:21] LABS: White Blood Cells, Urine 0-2 /hpf (0-5)
[2023-03-23 19:22] LABS: Bacteria Rare /hpf; Squamous Epithelial Cells Rare /hpf (Few)
[2023-03-23] MEDS ORDERED: Almacone Liqui355 ML PO (19:48)
[2023-03-23] MEDS ORDERED: ONDA4ODT MM (19:48)
== END 2023-03-23 20:16 | disposition home or self-care (01) ==
LOC: ER 12:16
PROVIDERS: Physician Assistant
DX: N17.9 Acute kidney failure, unspecified (principal); J90 Pleural effusion, not elsewhere classified; R10.30 Lower abdominal pain, unspecified; R31.29 Other microscopic hematuria; E86.0 Dehydration; F17.210 Nicotine dependence, cigarettes, uncomplicated; Z79.899 Other long term (current) drug therapy; Z79.890 Hormone replacement therapy; Z79.82 Long term (current) use of aspirin
CPT/HCPCS: 74177; 80053; 81001; 83690; 85025; 99284-25; A9270; J7030; Q9967

== ENCOUNTER 2023-04-11 10:17 | Emergency (ER) | payer MEDICARE ==
[~2023-04-11] VITALS: Ht 172.7 cm; Wt 65.8 kg
[~2023-04-11 10:17] MED LIST changes: +Almacone Liqui355 ML PO; +ONDA4ODT MM
[2023-04-11 10:37] VITALS: BP 160/112
[2023-04-11] MEDS ORDERED: HYDROcodone 5-APAP 325 TAB PO ONE (11:15)
== END 2023-04-11 12:41 | disposition home or self-care (01) ==
LOC: ER 10:17
DX: S90.31XA Contusion of right foot, initial encounter (principal); X50.1XXA Overexertion from prolonged static or awkward postures, initial encounter; J44.9 Chronic obstructive pulmonary disease, unspecified; F17.210 Nicotine dependence, cigarettes, uncomplicated; Z79.899 Other long term (current) drug therapy; Z79.890 Hormone replacement therapy
CPT/HCPCS: 73610; 73630; 99283-25; A9270

== ENCOUNTER → 2023-04-19 | Outpatient (CLI) | payer MEDICARE | LOC: LAB EV 13:02 → LAB SHORT 13:02 | DX: E03.9 Hypothyroidism, unspecified (principal); M06.9 Rheumatoid arthritis, unspecified | CPT/HCPCS: 84443; 85651 ==

== ENCOUNTER 2023-11-23 18:36 | Emergency (ER) | payer MEDICARE ==
[~2023-11-23] VITALS: Ht 172.7 cm; Wt 65.3 kg
[2023-11-23 19:32] LABS: BASOPHILS ABSOLUTE AUTO 0.07 K/mm3 (0.00-0.23); BASOPHILS PERCENT AUTO 1 % (0-2); EOSINOPHILS PERCENT AUTO 2 % (0-6); Hemoglobin 13.9 g/dL (13.5-17.5); IMMATURE GRAN ABSOLUTE AUTO 0.01 K/mm3 (0.00-0.10); IMMATURE GRAN PERCENT AUTO 0 % (0-1); LYMPHOCYTES PERCENT AUTO 43 % (21-46); MONOCYTES PERCENT AUTO 7 % (4-13); Mean Corpuscular HGB 28.7 pg (26.0-34.0); Mean Corpuscular HGB Conc 32.3 g/dL (31.5-36.5); Mean Corpuscular Volume 89 fL (80-100); Mean Platelet Volume 10.2 fL (9.1-12.4); NEUTROPHILS ABSOLUTE AUTO 2.71 K/mm3 (1.96-9.15); NEUTROPHILS PERCENT AUTO 47 % (41-73); Platelet Count 154 K/mm3 (150-400); RDW Coefficient Variation 12.7 % (11.7-14.2); RDW Standard Deviation 41.8 fL (35.1-46.3); Red Blood Cell Count 4.84 M/mm3 (4.30-5.90); White Blood Cell Count 5.79 K/mm3 (4.00-11.30)
[2023-11-23 19:54] LABS: Albumin, Blood 3.3 g/dL (3.4-5.0); Albumin/Globulin Ratio 1.1 (0.8-1.8); Bilirubin, Total 0.4 mg/dL (0.1-1.0); Bun/Creatinine Ratio 18.9 (12.0-20.0); Calcium, Blood 8.6 mg/dL (8.5-10.1); Creatinine, Blood 1.11 mg/dL (0.60-1.20); Globulin, Blood 2.9 g/dL (2.2-4.0); Potassium, Blood 4.3 mmol/L (3.5-5.5); Total Protein, Blood 6.2 g/dL (6.4-8.2)
[2023-11-23] MEDS ORDERED: CefTRIAXone Sodium 1,000 MG in NS 100 ML IV ONE (23:10)
[2023-11-23] MEDS ORDERED: CEFU500T30 PO (23:15)
[2023-11-23 23:45] VITALS: BP 194/116
== END 2023-11-23 23:45 | disposition home or self-care (01) ==
LOC: ER 18:36
PROVIDERS: Student in an Organized Health Care Education/Training Program
DX: L02.612 Cutaneous abscess of left foot (principal); J44.9 Chronic obstructive pulmonary disease, unspecified; F17.210 Nicotine dependence, cigarettes, uncomplicated; Z79.82 Long term (current) use of aspirin; Z79.890 Hormone replacement therapy; Z79.899 Other long term (current) drug therapy
CPT/HCPCS: 73701; 80053; 85025; 96374-59; 99283-25; J0696; Q9967

== ENCOUNTER 2023-11-28 04:03 | Day surgery (SDC) | payer MEDICARE ==
[~2023-11-28 04:03] MED LIST changes: +CEFU500T30 PO
== END 2023-11-29 23:00 | disposition home or self-care (01) ==
LOC: WOUND 04:03
DX: L97.422 Non-pressure chronic ulcer of left heel and midfoot with fat layer exposed (principal); M06.9 Rheumatoid arthritis, unspecified; F17.200 Nicotine dependence, unspecified, uncomplicated; F12.929 Cannabis use, unspecified with intoxication, unspecified; J44.9 Chronic obstructive pulmonary disease, unspecified; I10 Essential (primary) hypertension; I73.9 Peripheral vascular disease, unspecified; E03.9 Hypothyroidism, unspecified; F03.90 Unspecified dementia, unspecified severity, without behavioral disturbance, psychotic disturbance, mood disturbance, and anxiety; Z88.8 Allergy status to other drugs, medicaments and biological substances; L89.92 Pressure ulcer of unspecified site, stage 2
CPT/HCPCS: G0463

== ENCOUNTER 2023-12-05 04:45 | Day surgery (SDC) | payer MEDICARE ==
[2023-12-05] MEDS ORDERED: Lidocaine HCl 4% Cream 5 GM ONE (11:40)
== END 2023-12-06 23:06 | disposition home or self-care (01) ==
LOC: WOUND 04:45
DX: L97.522 Non-pressure chronic ulcer of other part of left foot with fat layer exposed (principal); M06.9 Rheumatoid arthritis, unspecified; L89.92 Pressure ulcer of unspecified site, stage 2; I73.9 Peripheral vascular disease, unspecified; I10 Essential (primary) hypertension; R60.0 Localized edema
CPT/HCPCS: 93970; A9270

== ENCOUNTER 2023-12-12 01:51 | Day surgery (SDC) | payer MEDICARE ==
[2023-12-12] MEDS ORDERED: Lidocaine HCl 4% Cream 5 GM ONE (11:34)
== END 2023-12-12 23:00 | disposition home or self-care (01) ==
LOC: WOUND 01:51
DX: L97.522 Non-pressure chronic ulcer of other part of left foot with fat layer exposed (principal); I73.9 Peripheral vascular disease, unspecified; I10 Essential (primary) hypertension
CPT/HCPCS: A9270; G0463